=== PATIENT | male | born 1960 | race American Indian/Alaskan Native ===

== ENCOUNTER 2016-07-27 09:13 | Emergency (ER) | payer MEDICAID ==
[2016-07-27 09:31] VITALS: BP 123/82
[2016-07-27] MEDS ORDERED: MORPHINE IM ONE (09:49)
[2016-07-27] MEDS ORDERED: ZOFRAN IM ONE (09:49)
[2016-07-27] MEDS ORDERED: DECADRON IM ONE (09:49)
--- NOTE | 2016-07-27 09:53 | Emergency Department Report ---
ED General Adult HPI - General Chief complaint: Extremity Injury, Lower Stated complaint: LT KNEE PAIN Time Seen by Provider: 07/27/16 09:36 Source: patient Mode of arrival: Ambulatory Limitations: Physical Limitation - History of Present Illness Initial comments: 55-year-old male with history of gout presents to the ED complaining about left knee pain and swelling for 3 weeks. Patient states symptoms are worse today. States that he was seen by his primary care doctor and had uric acid checked which was elevated. States that he was started on Motrin 800 and allopurinol and states no relief with this medication. - Related Data Home Medications Medication Instructions Recorded Confirmed Last Taken Gabapentin 400 mg PO TID 11/16/14 12/03/15 1 Day Ago Ibuprofen [Motrin] 800 mg PO Q8H PRN 11/16/14 12/03/15 07/26/16 Allopurinol [Zyloprim] 100 mg PO QDAY 07/27/16 07/27/16 07/27/16 Fenofibrate [Tricor] 145 mg PO QDAY 07/27/16 07/27/16 07/26/16 Simvastatin [Zocor TAB] 20 mg PO QHS 07/27/16 07/27/16 07/27/16 Previous Rx's Medication Instructions Recorded Last Taken Type Albuterol Sulfate [Ventolin HFA] 2 puff IH Q4H PRN #1 hfa.aer.ad 09/22/15 1 Day Ago Rx Colchicine 0.6 mg PO QDAY #12 capsule 07/27/16 Unknown Rx HYDROcodone/APAP 5-325 [[place] 1 each PO Q6HR PRN #14 tablet 07/27/16 Unknown Rx 5/325] Prednisone [predniSONE 10 mg 10 mg PO .TAPER #1 tab.ds.pk 07/27/16 Unknown Rx (6-Day Pack, 21 Tabs)] Allergies Allergy/AdvReac Type Severity Reaction Status Date / Time No Known Allergies Allergy Verified 12/03/15 07:28 ED Review of Systems ROS: Stated complaint: LT KNEE PAIN Other details as noted in HPI Constitutional: denies: chills, fever Eyes: denies: eye pain, eye discharge, vision change ENT: denies: ear pain, throat pain Respiratory: denies: cough, shortness of breath, wheezing Cardiovascular: denies: chest pain, palpitations Endocrine: no symptoms reported Gastrointestinal: denies: abdominal pain, nausea, diarrhea Genitourinary: denies: urgency, dysuria Musculoskeletal: joint swelling, arthralgia. denies: back pain Skin: denies: rash, lesions Neurological: denies: headache, weakness, paresthesias Psychiatric: denies: anxiety, depression Hematological/Lymphatic: denies: easy bleeding, easy bruising ED Past Medical Hx - Past Medical History Previous Medical History?: Yes Hx CVA: Yes Hx Liver Disease: Yes (HEPATITIS B) Hx Arthritis: Yes Hx Asthma: Yes Additional medical history: hemorrhoids. pancreatitis, gout - Surgical History Past Surgical History?: Yes Additional Surgical History: hemorrhoid surgery. PROSTATE SURGERY - Social History Smoking Status: Current Every Day Smoker Substance Use Type: Alcohol - Medications Home Medications: Home Medications Medication Instructions Recorded Confirmed Last Taken Type Gabapentin 400 mg PO TID 11/16/14 12/03/15 1 Day Ago History Ibuprofen [Motrin] 800 mg PO Q8H PRN 11/16/14 12/03/15 07/26/16 History Albuterol Sulfate [Ventolin HFA] 2 puff IH Q4H PRN #1 hfa.aer.ad 09/22/15 1 Day Ago Rx Allopurinol [Zyloprim] 100 mg PO QDAY 07/27/16 07/27/16 07/27/16 History Colchicine 0.6 mg PO QDAY #12 capsule 07/27/16 Unknown Rx Fenofibrate [Tricor] 145 mg PO QDAY 07/27/16 07/27/16 07/26/16 History HYDROcodone/APAP 5-325 [[place] 1 each PO Q6HR PRN #14 tablet 07/27/16 Unknown Rx 5/325] Prednisone [predniSONE 10 mg 10 mg PO .TAPER #1 tab.ds.pk 07/27/16 Unknown Rx (6-Day Pack, 21 Tabs)] Simvastatin [Zocor TAB] 20 mg PO QHS 07/27/16 07/27/16 07/27/16 History ED Physical Exam - General Limitations: Physical Limitation General appearance: alert, in no apparent distress - Head Head exam: Present: atraumatic, normocephalic - Eye Eye exam: Present: normal appearance - ENT ENT exam: Present: mucous membranes moist - Neck Neck exam: Present: normal inspection - Respiratory Respiratory exam: Present: normal lung sounds bilaterally. Absent: respiratory distress - Cardiovascular Cardiovascular Exam: Present: regular rate, normal rhythm. Absent: systolic murmur, diastolic murmur, rubs, gallop - GI/Abdominal GI/Abdominal exam: Present: soft, normal bowel sounds - Rectal Rectal exam: Present: deferred - Extremities Exam Extremities exam: Present: normal inspection - Expanded Lower Extremity Exam Left Upper Leg exam: Present: normal inspection, full ROM Knee exam: Present: full ROM, tenderness, swelling. Absent: abrasion, laceration, ecchymosis, deformity, crepidus, dislocation, erythema, effusion, pain w/ pronation/supination Lower Leg exam: Present: normal inspection, full ROM Ankle exam: Present: normal inspection, full ROM - Back Exam Back exam: Present: normal inspection - Neurological Exam Neurological exam: Present: alert, oriented X3 - Psychiatric Psychiatric exam: Present: normal affect, normal mood - Skin Skin exam: Present: warm, dry, intact, normal color. Absent: rash ED Course Vital Signs 07/27/16 09:27 Temperature 98.4 F Pulse Rate 98 H Respiratory 20 Rate Blood Pressure 123/82 O2 Sat by Pulse 98 Oximetry ED Medical Decision Making - Medical Decision Making patient resting comfortably. VSS. will give decadron and start colchicine. will stop allopurinol. Critical care attestation.: If time is entered above; I have spent that time in minutes in the direct care of this critically ill patient, excluding procedure time. ED Disposition Clinical Impression: Gout of left knee Disposition: DISCHARGED TO HOME OR SELFCARE Is pt being admited?: No Does the pt Need Aspirin: No Condition: Good Instructions: Acute Gouty Arthritis (ED) Prescriptions: Colchicine 0.6 mg PO QDAY #12 capsule HYDROcodone/APAP 5-325 [[place] 5/325] 1 each PO Q6HR PRN #14 tablet PRN Reason: Pain Prednisone [predniSONE 10 mg (6-Day Pack, 21 Tabs)] 10 mg PO .TAPER #1 tab.ds.pk Referrals: JOHAN CORTEZ MD [Primary Care Provider] - 3-5 Days Time of Disposition: 09:52
== END 2016-07-27 10:27 | disposition home or self-care (01) ==
LOC: ED 09:13
DX: M10.9 Gout, unspecified (principal); J45.909 Unspecified asthma, uncomplicated; F17.200 Nicotine dependence, unspecified, uncomplicated; M19.90 Unspecified osteoarthritis, unspecified site; Z86.73 Personal history of transient ischemic attack (TIA), and cerebral infarction without residual deficits; Z98.890 Other specified postprocedural states; Z86.19 Personal history of other infectious and parasitic diseases; Z79.1 Long term (current) use of non-steroidal anti-inflammatories (NSAID); Z79.899 Other long term (current) drug therapy
CPT/HCPCS: 96372; 99282; J1100; J2270; J2405

== ENCOUNTER 2017-07-18 13:20 | Emergency (ER) | payer MEDICAID ==
[2017-07-18 13:30] VITALS: BP 121/78
[2017-07-18] MEDS ORDERED: PERCOCET 5/325 PO ONE ×2 (14:07→14:10)
--- NOTE | 2017-07-18 14:12 | Emergency Department Report ---
ED Back Pain/Injury HPI - General Chief Complaint: Back Pain/Injury Stated Complaint: BACK/HIP/LEG PAIN Time Seen by Provider: 07/18/17 13:59 Source: patient Limitations: No Limitations - History of Present Illness Initial Comments: 56-year-old male with multiple chronic conditions including arthritis and gout which requires him to be in pain management visits the hospital with continued right hip and leg pain 4 weeks. Symptoms started after jumping and landing hard on his right leg. He has seen his primary care doctor and was prescribed ibuprofen. He is also taking tramadol and Neurontin without relief. Appointment with his pain mask as best as in the next 3 days. Patient states the pain is worsening and he cannot sleep. It is a constant, aching pain with palpation and movement. Pain is at the right lower back, right buttock and radiates down to the right ankle. No urinary incontinence or fever reported. Patient states he's had negative x-rays performed by his PMD. - Related Data Home Medications Medication Instructions Recorded Confirmed Last Taken Gabapentin 400 mg PO TID 11/16/14 09/28/16 1 Day Ago ~11/21/15 Ibuprofen [Motrin 800 MG tab] 800 mg PO Q8H PRN 11/16/14 09/28/16 07/26/16 Allopurinol [Zyloprim] 100 mg PO QDAY 07/27/16 09/28/16 07/27/16 Fenofibrate [Tricor] 145 mg PO QDAY 07/27/16 09/28/16 07/26/16 Simvastatin [Zocor TAB] 20 mg PO QHS 07/27/16 09/28/16 07/27/16 Chloraseptic 2 sprays PO PRN PRN 09/28/16 09/28/16 09/27/16 Robitussin 1 - 2 tbsp PO Q6H PRN 09/28/16 09/28/16 09/27/16 Previous Rx's Medication Instructions Recorded Last Taken Type Albuterol Sulfate [Ventolin HFA] 2 puff IH Q4H PRN #1 hfa.aer.ad 09/22/15 1 Day Ago Rx ~11/21/15 Colchicine 0.6 mg PO QDAY #12 capsule 07/27/16 Unknown Rx Levofloxacin [Levaquin TAB] 500 mg PO QDAY #5 tablet 09/30/16 Unknown Rx Prednisone [predniSONE 10 mg 10 mg PO .TAPER #1 tab.ds.pk 09/30/16 Unknown Rx (6-Day Pack, 21 Tabs)] HYDROcodone/APAP 5-325 [[place] 1 each PO Q6HR PRN #20 tablet 07/18/17 Unknown Rx 5-325 mg TAB] Allergies Allergy/AdvReac Type Severity Reaction Status Date / Time No Known Allergies Allergy Verified 12/03/15 07:28 ED Review of Systems ROS: Stated complaint: BACK/HIP/LEG PAIN Other details as noted in HPI Comment: All other systems reviewed and negative Other: Constitutional: No fevers chills or weight loss Eyes: No eye pain visual changes or discharge ENT: No ear pain or throat pain Neck: Denies pain Respiratory: Denies cough wheezing shortness of breath Cardiovascular: Denies chest pain, palpitations, syncope GI: Denies abdominal pain, nausea, vomiting, diarrhea : Denies dysuria Musculoskeletal: As per HPI Skin: Denies rash, lesions, erythema Neurologic: Denies headache, numbness, weakness Psychiatric: Denies suicidal ideation, hallucinations ED Past Medical Hx - Past Medical History Previous Medical History?: Yes Hx CVA: Yes Hx Congestive Heart Failure: No Hx Diabetes: No Hx Liver Disease: Yes (HEPATITIS B) Hx Arthritis: Yes Hx Asthma: Yes Hx COPD: Yes Hx HIV: No Additional medical history: hemorrhoids. pancreatitis, gout - Surgical History Past Surgical History?: Yes Additional Surgical History: hemorrhoid surgery. PROSTATE SURGERY - Social History Smoking Status: Current Some Day Smoker Substance Use Type: None - Medications Home Medications: Home Medications Medication Instructions Recorded Confirmed Last Taken Type Gabapentin 400 mg PO TID 11/16/14 09/28/16 1 Day Ago History ~11/21/15 Ibuprofen [Motrin 800 MG tab] 800 mg PO Q8H PRN 11/16/14 09/28/16 07/26/16 History Albuterol Sulfate [Ventolin HFA] 2 puff IH Q4H PRN #1 hfa.aer.ad 09/22/15 1 Day Ago Rx ~11/21/15 Allopurinol [Zyloprim] 100 mg PO QDAY 07/27/16 09/28/16 07/27/16 History Colchicine 0.6 mg PO QDAY #12 capsule 07/27/16 09/28/16 Unknown Rx Fenofibrate [Tricor] 145 mg PO QDAY 07/27/16 09/28/16 07/26/16 History Simvastatin [Zocor TAB] 20 mg PO QHS 07/27/16 09/28/16 07/27/16 History Chloraseptic 2 sprays PO PRN PRN 09/28/16 09/28/16 09/27/16 History Robitussin 1 - 2 tbsp PO Q6H PRN 09/28/16 09/28/16 09/27/16 History Levofloxacin [Levaquin TAB] 500 mg PO QDAY #5 tablet 09/30/16 Unknown Rx Prednisone [predniSONE 10 mg 10 mg PO .TAPER #1 tab.ds.pk 09/30/16 Unknown Rx (6-Day Pack, 21 Tabs)] HYDROcodone/APAP 5-325 [[place] 1 each PO Q6HR PRN #20 tablet 07/18/17 Unknown Rx 5-325 mg TAB] ED Physical Exam - General Limitations: No Limitations - Other Other exam information: General: No limitations, patient is alert in no acute distress Head exam: Atraumatic, normocephalic Eyes exam: Normal appearance ENT: Moist mucous membrane, normal oropharynx Neck exam: Normal inspection, full range of motion Respiratory exam: Clear to auscultation bilateral, no wheezes, rales, crackles Cardiovascular: Normal rate and rhythm, normal heart sounds Abdomen: Soft, nondistended, and nontender, with normal bowel sounds, no rebound, or guarding Extremity: Pain to palpation of right buttock and with movement of right leg. Sensation intact. Full range of motion. No deformity or edema. Back: Normal Inspection, full range of motion, no tenderness Neurologic: Alert, oriented x3, cranial nerves intact, no motor or sensory deficit Psychiatric: normal affect, normal mood Skin: Warm, dry, intact ED Course Vital Signs 07/18/17 13:25 Temperature 98.2 F Pulse Rate 70 Respiratory 18 Rate Blood Pressure 121/78 O2 Sat by Pulse 97 Oximetry - Reevaluation(s) Reevaluation #1: 07/18/17 14:11 2 Percocets ordered for pain. Patient took ibuprofen earlier today ED Medical Decision Making - Medical Decision Making Pain is ongoing and chronic. Patient had negative imaging as an outpatient as scheduled to see a pain management doctor. He is requesting stronger medication for pain relief. Provided Percocet in the ED and will go home on [place]. Informed not to take tramadol and [place] together but he can take [place] and ibuprofen together. - Differential Diagnosis sciatica, muscle strain, radiculopathy, herniated disc Critical Care Time: No Critical care attestation.: If time is entered above; I have spent that time in minutes in the direct care of this critically ill patient, excluding procedure time. ED Disposition Clinical Impression: Radicular pain of right lower back Disposition: - TO HOME OR SELFCARE Is pt being admited?: No Does the pt Need Aspirin: No Condition: Stable Instructions: Chronic Back Pain (ED), Sciatica (ED) Additional Instructions: Take either ibuprofen and/or tramadol or your ibuprofen and [place] together for additional pain relief. Continue other medications as prescribed. Follow up with your pain specialist as scheduled. Prescriptions: HYDROcodone/APAP 5-325 [[place] 5-325 mg TAB] 1 each PO Q6HR PRN #20 tablet PRN Reason: Pain Referrals: [facility] [Other] - 3-5 Days Time of Disposition: 14:13
== END 2017-07-18 14:22 | disposition home or self-care (01) ==
LOC: ED 13:20
DX: M54.16 Radiculopathy, lumbar region (principal); Z86.73 Personal history of transient ischemic attack (TIA), and cerebral infarction without residual deficits; M19.90 Unspecified osteoarthritis, unspecified site; J44.9 Chronic obstructive pulmonary disease, unspecified; F17.200 Nicotine dependence, unspecified, uncomplicated
CPT/HCPCS: 99282

== ENCOUNTER 2017-09-08 20:18 | Emergency (ER) | payer MEDICAID ==
[2017-09-08 20:35] VITALS: BP 127/79
== END 2017-09-08 23:45 | disposition left against medical advice (07) ==
LOC: ED 20:18
DX: M79.605 Pain in left leg (principal); Z53.21 Procedure and treatment not carried out due to patient leaving prior to being seen by health care provider

== ENCOUNTER 2018-02-16 09:36 | Day surgery (SDC) | payer MEDICAID ==
[~2018-02-16 09:36] MED LIST: NACL 0.9% 1000 ML 1,000 ML IV SCH
--- NOTE | 2018-02-16 13:16 | Anesthesia Consultation ---
Anesthesia Consult and Med Hx Date of service: 02/16/18 - Airway Anesthetic Teeth Evaluation: Good ROM Head & Neck: Inadequate Mental/Hyoid Distance: Adequate Mallampati Class: Class II Intubation Access Assessment: Probably Good - Pulmonary Exam CTA: Yes - Cardiac Exam Cardiac Exam: RRR - Pre-Operative Health Status ASA Pre-Surgery Classification: ASA3 Proposed Anesthetic Plan: MAC - Pulmonary Hx Smoking: Yes Hx Asthma: Yes COPD: Yes Hx Pneumonia: Yes - Central Nervous System CVA: Yes - Gastrointestinal Hx Gastroesophageal Reflux Disease: Yes - Endocrine Hx Liver Disease: Yes (HEPATITIS B) - Other Systems Hx Cancer: Yes (prostate)
--- NOTE | 2018-02-16 13:17 | Anesthesia Day of Surgery ---
Anesthesia Day of Surgery - Day of Surgery Patient Examined: Yes Patient H&P Reviewed: Yes Patient is NPO: Yes
[2018-02-16] MEDS ORDERED: DIPRIVAN 10 MG/ML IV ONE ×2 (14:05)
--- NOTE | 2018-02-16 14:55 | Operative Report ---
Operative Report Operative Report: Date of procedure: 02/16/2018 Procedure: Colonoscopy Attending physician: Glenn Green MD Magnetic Resonance Imaging Director: Glenn Green MD Indication: Patient is a 57-year-old male who presents for colorectal cancer screening. Colonoscopy serves to evaluate patient so that treatment may be directed based on the findings. Consent: Informed consent was obtained after advising the patient and family regarding nature of this procedure, its indications, potential benefits as well as possible complications including but not limited to bleeding perforation and adverse reaction to medication, infection as well as other cardiopulmonary complications. An informed written and verbal consent was then obtained after due opportunity was provided for questions and answers. Monitoring: Patient was monitored continuously with pulse oximetry and electrocardiographic recordings as well as blood pressure recordings. Vital signs remained stable throughout this procedure with no untoward events. Preoperative assessment: Patient was assessed immediately prior to this procedure for capacity to tolerate monitored anesthesia care and moderate sedation as well as general anesthesia. Patient's ASA classification is 2, Mallampati class is 2, Hyomental distance is 3. Instrument: FaceTagsn videocolonoscope. Medications: Propofol, given intravenously in divided doses. For details please refer to anesthesia records. Description of procedure: Patient was placed in the left lateral decubitus position after achieving sedation, a digital rectal examination was performed following which the colonoscope was introduced into the anal verge and advanced to the cecum which was identified by the cecal valve, the appendiceal orifice, as well as by the cecal strap and direct transillumination. The colonoscope was subsequently withdrawn with careful inspection of all mucosal surfaces. Patient tolerated this procedure well and was subsequently taken to the recovery room. The following findings were noted. Findings: The entirety of the colon was normal except for findings of mild diverticulosis in the sigmoid and descending colon. On retroflex view of the anal verge, patient had internal hemorrhoids. Impression: Mild diverticulosis. Internal hemorrhoids. Plan: High-fiber diet. Repeat colonoscopy in 10 years.
--- NOTE | 2018-02-16 14:56 | Discharge Summary ---
Short Stay Discharge Plan Activity: advance as tolerated Weight Bearing Status: Weight Bear as Tolerated Diet: regular Follow up with: JOHAN CORTEZ MD [Primary Care Provider] - 7 Days
[2018-02-16 15:14] VITALS: BP 114/54
[2018-02-16] MEDS ORDERED: WATER FOR IRRIG STERILE IR ONE (16:07)
[2018-02-16] MEDS ORDERED: WATER FOR IRRIG STERILE ONE (16:08)
== END 2018-02-16 09:37 | disposition home or self-care (01) ==
LOC: GIO 09:36
PROVIDERS: ATTEND Internal Medicine Gastroenterology
DX: K57.30 Diverticulosis of large intestine without perforation or abscess without bleeding (principal); K64.8 Other hemorrhoids; K59.00 Constipation, unspecified; D64.9 Anemia, unspecified; K58.9 Irritable bowel syndrome, unspecified; M19.90 Unspecified osteoarthritis, unspecified site; F17.210 Nicotine dependence, cigarettes, uncomplicated; E78.00 Pure hypercholesterolemia, unspecified; J44.9 Chronic obstructive pulmonary disease, unspecified; K21.9 Gastro-esophageal reflux disease without esophagitis; Z98.890 Other specified postprocedural states; Z79.899 Other long term (current) drug therapy; Z86.73 Personal history of transient ischemic attack (TIA), and cerebral infarction without residual deficits; Z85.46 Personal history of malignant neoplasm of prostate; Z86.19 Personal history of other infectious and parasitic diseases; Z82.5 Family history of asthma and other chronic lower respiratory diseases; Z80.0 Family history of malignant neoplasm of digestive organs
CPT/HCPCS: 45378; J2704; J7030

== ENCOUNTER 2018-06-24 19:44 | Emergency (ER) | payer MEDICAID ==
[2018-06-24 19:54] VITALS: BP 98/72
[2018-06-24] MEDS ORDERED: TORADOL IM ONE (20:37)
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
== END 2018-06-24 22:48 | disposition home or self-care (01) ==
LOC: ED 19:44
DX: S29.011A Strain of muscle and tendon of front wall of thorax, initial encounter (principal); S76.011A Strain of muscle, fascia and tendon of right hip, initial encounter; J44.9 Chronic obstructive pulmonary disease, unspecified; M19.90 Unspecified osteoarthritis, unspecified site; F17.200 Nicotine dependence, unspecified, uncomplicated; Z86.73 Personal history of transient ischemic attack (TIA), and cerebral infarction without residual deficits; Z79.899 Other long term (current) drug therapy
CPT/HCPCS: 71046; 73502; 93005; 93010; 96372; 99283; J1885

== ENCOUNTER 2019-08-23 19:52 | Emergency (ER) | payer MEDICAID ==
--- NOTE | 2019-08-23 20:00 | Emergency Department Report ---
Blank Doc - Documentation Documentation: 58-year-old male that presents with SOB, cough, and tachycardia. This initial assessment/diagnostic orders/clinical plan/treatment(s) is/are subject to change based on patient's health status, clinical progression and re- assessment by fellow clinical providers in the ED. Further treatment and workup at subsequent clinical providers discretion. Patient/guardians urged not to elope from the ED as their condition may be serious if not clinically assessed and managed. Initial orders include: 1- Patient sent to [facility] for further evaluation and treatment 2- CXR
--- NOTE | 2019-08-23 21:02 | XRay Report ---
CHEST 2 VIEWS INDICATION / CLINICAL INFORMATION: cough. COMPARISON: None available FINDINGS: SUPPORT DEVICES: None. HEART / MEDIASTINUM: No significant abnormality. LUNGS / PLEURA: No significant pulmonary or pleural abnormality. No pneumothorax. ADDITIONAL FINDINGS: No significant additional findings. IMPRESSION: No acute finding. Signer Name: Ron Bishop MD Signed: 08/23/2019 8:58 PM Workstation Name: [id number]
[2019-08-23] MEDS ORDERED: LEVALBUTEROL 0.63 MG/3 ML NEBU IH ONE (22:29)
[2019-08-23] MEDS ORDERED: ACETAMINOPHEN 325 MG TAB PO ONE (22:29)
--- NOTE | 2019-08-23 22:29 | Emergency Department Report ---
ED Shortness of Breath HPI - General Chief Complaint: Dyspnea/Respdistress Stated Complaint: ANNAMARIA Time Seen by Provider: 08/23/19 19:59 Source: patient Mode of arrival: Ambulatory Limitations: No Limitations - History of Present Illness Initial Comments: This is a 58-year-old male presented to the emergency room with shortness of breath report that he has a history of asthma. He reports that he takes albuterol and last time he took that was last week. Patient reports occasional cough with nasal congestion. Denies any wheezing. Reports chills. Reports pain to chest with coughing. Denies any nausea vomiting, headache. Denies any diarrhea or constipation. Pain is 4/10 with coughing. Achy. No medication taken. Intermittent. Denies any contact with individuals with similar symptoms. Denies any traveling by airplane or out of the country recently. Patient is not a healthcare worker. Patient reports that he lives alone and his who is on dialysis lives with MD Complaint: shortness of breath, cough Onset/Timin -: days(s) Severity: mild Pain Scale: 4 Quality: aching Consistency: intermittent Worsens With: coughing Known History Of: asthma Context: recent URI Associated Symptoms: chest pain (With coughing), cough, other (Nasal congestion and chills) Treatments Prior to Arrival: none - Related Data Home Oxygen Therapy: No Home Medications Medication Instructions Recorded Confirmed Last Taken Gabapentin 400 mg PO TID 11/16/14 02/16/18 1 Day Ago ~11/21/15 Ibuprofen [Motrin 800 MG tab] 800 mg PO Q8H PRN 11/16/14 02/16/18 07/26/16 Fenofibrate [Tricor] 145 mg PO QDAY 07/27/16 02/16/18 02/11/18 Simvastatin (Nf) [Zocor TAB] 20 mg PO QHS 07/27/16 02/16/18 02/15/18 allopurinoL [Zyloprim] 100 mg PO QDAY 07/27/16 02/16/18 02/15/18 Amitriptyline 25 mg PO DAILY 02/16/18 02/16/18 Unknown Fish Oil 1 tab PO DAILY 02/16/18 02/16/18 02/11/18 Lyrica 250 mg PO DAILY 02/16/18 02/16/18 02/15/18 Vitamin B-12 1 tab PO DAILY 02/16/18 02/16/18 02/11/18 Vitamin E Cap 1 tab PO DAILY 02/16/18 02/16/18 02/11/18 Previous Rx's Medication Instructions Recorded Last Taken Type Albuterol Sulfate [Ventolin HFA] 2 puff IH Q4H PRN #1 hfa.aer.ad 09/22/15 02/13/18 Rx Colchicine 0.6 mg PO QDAY #12 capsule 07/27/16 02/11/18 Rx HYDROcodone/APAP 5-325 [[place] 1 each PO Q6HR PRN #20 tablet 07/18/17 Unknown Rx 5-325 mg TAB] Cyclobenzaprine [Flexeril] 10 mg PO TID PRN #30 tablet 06/24/18 Unknown Rx Menthol/Camphor [[place] 1 applicatio TP QID PRN #1 tube 06/24/18 Unknown Rx Ointment] Naproxen 500 mg PO BID PRN #30 tablet 06/24/18 Unknown Rx Acetaminophen [Acetaminophen TAB] 500 mg PO Q6HR PRN #12 tablet 08/24/19 Unknown Rx Azithromycin [Zithromax Z-ISRAEL] 250 mg PO DAILY 5 Days #1 pkg 08/24/19 Unknown Rx Allergies Allergy/AdvReac Type Severity Reaction Status Date / Time No Known Allergies Allergy Verified 06/24/18 19:50 ED Review of Systems ROS: Stated complaint: ANNAMARIA Other details as noted in HPI Constitutional: chills ENT: congestion. denies: ear pain, throat pain Respiratory: cough, shortness of breath, SOB with exertion, SOB at rest. denies : stridor, wheezing Cardiovascular: chest pain (With coughing). denies: palpitations, edema, syncope Gastrointestinal: denies: abdominal pain, nausea, vomiting, diarrhea, constipation, hematemesis, melena, hematochezia Genitourinary: denies: dysuria, frequency, hematuria Musculoskeletal: denies: back pain, joint swelling, arthralgia, myalgia Skin: denies: rash Neurological: denies: headache, numbness, paresthesias, vertigo ED Past Medical Hx - Past Medical History Previous Medical History?: Yes Hx CVA: Yes Hx Congestive Heart Failure: No Hx Diabetes: No Hx Liver Disease: Yes (HEPATITIS B) Hx Arthritis: Yes Hx Asthma: Yes Hx COPD: Yes Hx HIV: No Additional medical history: hemorrhoids. pancreatitis,. gout. Hyperlipidemia - Surgical History Past Surgical History?: No Additional Surgical History: hemorrhoid surgery. PROSTATE SURGERY - Family History Family history: hypertension - Social History Smoking Status: Never Smoker Substance Use Type: Alcohol - Medications Home Medications: Home Medications Medication Instructions Recorded Confirmed Last Taken Type Gabapentin 400 mg PO TID 11/16/14 02/16/18 1 Day Ago History ~11/21/15 Ibuprofen [Motrin 800 MG tab] 800 mg PO Q8H PRN 11/16/14 02/16/18 07/26/16 History Albuterol Sulfate [Ventolin HFA] 2 puff IH Q4H PRN #1 hfa.aer.ad 09/22/15 02/16/18 02/13/18 Rx Colchicine 0.6 mg PO QDAY #12 capsule 07/27/16 02/16/18 02/11/18 Rx Fenofibrate [Tricor] 145 mg PO QDAY 07/27/16 02/16/18 02/11/18 History Simvastatin (Nf) [Zocor TAB] 20 mg PO QHS 07/27/16 02/16/18 02/15/18 History allopurinoL [Zyloprim] 100 mg PO QDAY 07/27/16 02/16/18 02/15/18 History HYDROcodone/APAP 5-325 [[place] 1 each PO Q6HR PRN #20 tablet 07/18/17 02/16/18 Unknown Rx 5-325 mg TAB] Amitriptyline 25 mg PO DAILY 02/16/18 02/16/18 Unknown History Fish Oil 1 tab PO DAILY 02/16/18 02/16/18 02/11/18 History Lyrica 250 mg PO DAILY 02/16/18 02/16/18 02/15/18 History Vitamin B-12 1 tab PO DAILY 02/16/18 02/16/18 02/11/18 History Vitamin E Cap 1 tab PO DAILY 02/16/18 02/16/18 02/11/18 History Cyclobenzaprine [Flexeril] 10 mg PO TID PRN #30 tablet 06/24/18 Unknown Rx Menthol/Camphor [[place] 1 applicatio TP QID PRN #1 tube 06/24/18 Unknown Rx Ointment] Naproxen 500 mg PO BID PRN #30 tablet 06/24/18 Unknown Rx Acetaminophen [Acetaminophen TAB] 500 mg PO Q6HR PRN #12 tablet 08/24/19 Unknown Rx Azithromycin [Zithromax Z-ISRAEL] 250 mg PO DAILY 5 Days #1 pkg 08/24/19 Unknown Rx ED Physical Exam - General Limitations: No Limitations General appearance: alert, in no apparent distress - Head Head exam: Present: atraumatic, normocephalic - Eye Eye exam: Present: normal appearance, PERRL, EOMI Pupils: Present: normal accommodation - ENT ENT exam: Present: normal orophraynx, mucous membranes moist, normal external ear exam, other (Bilateral nasal turbinates pale, congested with clear drainage). Absent: normal exam, TM's normal bilaterally (Bilateral middle ear effusion) - Neck Neck exam: Present: normal inspection, full ROM. Absent: tenderness, lymphadenopathy - Respiratory Respiratory exam: Present: normal lung sounds bilaterally, decreased breath sounds (Mild). Absent: respiratory distress, wheezes, rales, rhonchi, stridor, chest wall tenderness, accessory muscle use, prolonged expiratory - Cardiovascular Cardiovascular Exam: Present: regular rate, normal rhythm, normal heart sounds - GI/Abdominal GI/Abdominal exam: Present: soft, normal bowel sounds. Absent: distended, tenderness, guarding, rebound, rigid - Extremities Exam Extremities exam: Present: normal inspection, full ROM, normal capillary refill, other (No cce. + 2 pulses in all extremities, no neurovascular compromise). Absent: tenderness, pedal edema, joint swelling - Back Exam Back exam: Present: normal inspection, full ROM, other (Ambulates without any difficulties). Absent: tenderness, CVA tenderness (L) - Neurological Exam Neurological exam: Present: alert, oriented X3, normal gait - Psychiatric Psychiatric exam: Present: normal affect, normal mood - Skin Skin exam: Present: warm, dry, intact, normal color. Absent: rash ED Course Vital Signs 08/23/19 08/23/19 08/24/19 19:58 23:44 01:29 Temperature 99.6 F 99.2 F Pulse Rate 98 H 92 H Pulse Rate [ 84 Posterior Bilateral Throughout] Respiratory 18 20 Rate Respiratory 18 Rate [Posterior Bilateral Throughout] Blood Pressure 103/68 Blood Pressure 113/69 [Right] O2 Sat by Pulse 97 98 Oximetry - Reevaluation(s) Reevaluation #1: 08/23/19 23:50 Patient received Xopenex nebulizer 1.25 mg and still with some decreased air entry and complain of shortness of breath on exertion. Additional DuoNeb ordered. Chest x-ray is normal. CBC with mild hemoconcentration and chemistry stable except for potassium 3.5 which is slightly decreased. Troponin is negative. Still awaiting EKG and influenza test. Patient is nontoxic. I spoke with Dr. mccracken ED was the ED attending regarding patient presentation and treatment plan and is in agreement. Reevaluation #2: 08/24/19 01:43 Patient reports that when he coughs he has pain to the upper abdomen and bilateral chest. Placed on droplet precaution for suspect COVID-19. Lung sounds are clear and improved air entry. Oxygenation is at 97% on room air status post nebulizer treatment. Tylenol with codeine 10 cc ordered for cough and will help pain with coughing Reevaluation #3: 08/24/19 03:08 Patient educated on quarantine and COVID-19 suspicion. PUI formed completed and sent. Scanned in chart by registration. Patient seen is feeling a lot better after Tylenol with codeine elixir. Denies any pain at present. He said his cough is better. Vital signs are stable he is afebrile and patient to be discharged home on quarantine and followed by health department ED Medical Decision Making - Lab Data Result diagrams: 08/23/19 22:39 08/23/19 22:39 Lab Results 08/23/19 08/23/19 08/23/19 Range/Units 22:39 22:39 22:39 WBC 5.7 (4.5-11.0) K/mm3 RBC 4.71 (3.65-5.03) M/mm3 Hgb 15.8 H (11.8-15.2) gm/dl Hct 46.2 H (35.5-45.6) % MCV 98 H (84-94) fl MCH 33 H (28-32) pg MCHC 34 (32-34) % RDW 14.5 (13.2-15.2) % Plt Count 211 (140-440) K/mm3 Baso % (Auto) Sprinkling System Irrigator Add Manual Diff Complete Total Counted 100 Seg Neuts % (Manual) 63.0 (40.0-70.0) % Band Neutrophils % 2.0 % Lymphocytes % (Manual) 28.0 (13.4-35.0) % Reactive Lymphs % (Man) 0 % Monocytes % (Manual) 7.0 (0.0-7.3) % Eosinophils % (Manual) 0 (0.0-4.3) % Basophils % (Manual) 0 (0.0-1.8) % Metamyelocytes % 0 % Myelocytes % 0 % Promyelocytes % 0 % Blast Cells % 0 % Nucleated RBC % Not Reportable Seg Neutrophils # Man 3.6 (1.8-7.7) K/mm3 Band Neutrophils # 0.1 K/mm3 Lymphocytes # (Manual) 1.6 (1.2-5.4) K/mm3 Abs React Lymphs (Man) 0.0 K/mm3 Monocytes # (Manual) 0.4 (0.0-0.8) K/mm3 Eosinophils # (Manual) 0.0 (0.0-0.4) K/mm3 Basophils # (Manual) 0.0 (0.0-0.1) K/mm3 Metamyelocytes # 0.0 K/mm3 Myelocytes # 0.0 K/mm3 Promyelocytes # 0.0 K/mm3 Blast Cells # 0.0 K/mm3 WBC Morphology Not Reportable Hypersegmented Neuts Not Reportable Hyposegmented Neuts Not Reportable Hypogranular Neuts Not Reportable Smudge Cells Not Reportable Toxic Granulation Not Reportable Toxic Vacuolation Not Reportable Dohle Bodies Not Reportable Pelger-Huet Anomaly Not Reportable Verena Rods Not Reportable Platelet Estimate Consistent w auto Clumped Platelets Not Reportable Plt Clumps, EDTA Not Reportable Large Platelets Not Reportable Giant Platelets Not Reportable Platelet Satelliting Not Reportable Plt Morphology Comment Not Reportable RBC Morphology Normal Dimorphic RBCs Not Reportable Polychromasia Not Reportable Hypochromasia Not Reportable Poikilocytosis Not Reportable Anisocytosis Not Reportable Microcytosis Not Reportable Macrocytosis Not Reportable Spherocytes Not Reportable Pappenheimer Bodies Not Reportable Sickle Cells Not Reportable Target Cells Not Reportable Tear Drop Cells Not Reportable Ovalocytes Not Reportable Helmet Cells Not Reportable Ervin-[place] Bodies Not Reportable [place] Rings Not Reportable [place] Cells Not Reportable Bite Cells Not Reportable Crenated Cell Not Reportable Elliptocytes Not Reportable Acanthocytes (Spur) Not Reportable Rouleaux Not Reportable Hemoglobin C Crystals Not Reportable Schistocytes Not Reportable Malaria parasites Not Reportable Micha Bodies Not Reportable Hem Pathologist Commnt No Sodium 137 (137-145) mmol/L Potassium 3.5 L (3.6-5.0) mmol/L Chloride 101.1 (98-107) mmol/L Carbon Dioxide 22 (22-30) mmol/L Anion Gap 17 mmol/L BUN 9 (9-20) mg/dL Creatinine 0.9 (0.8-1.5) mg/dL Estimated GFR > 60 ml/min BUN/Creatinine Ratio 10 % Glucose 111 H (75-100) mg/dL Calcium 9.4 (8.4-10.2) mg/dL Total Bilirubin 0.30 (0.1-1.2) mg/dL AST 58 H (5-40) units/L ALT 30 (7-56) units/L Alkaline Phosphatase 55 (35-129) units/L Troponin T < 0.010 (0.00-0.029) ng/mL Total Protein 7.4 (6.3-8.2) g/dL Albumin 4.0 (3.9-5) g/dL Albumin/Globulin Ratio 1.2 % Influenza A (Rapid) (Negative) Influenza B (Rapid) (Negative) 08/23/19 Range/Units Unknown WBC (4.5-11.0) K/mm3 RBC (3.65-5.03) M/mm3 Hgb (11.8-15.2) gm/dl Hct (35.5-45.6) % MCV (84-94) fl MCH (28-32) pg MCHC (32-34) % RDW (13.2-15.2) % Plt Count (140-440) K/mm3 Baso % (Auto) Add Manual Diff Total Counted Seg Neuts % (Manual) (40.0-70.0) % Band Neutrophils % % Lymphocytes % (Manual) (13.4-35.0) % Reactive Lymphs % (Man) % Monocytes % (Manual) (0.0-7.3) % Eosinophils % (Manual) (0.0-4.3) % Basophils % (Manual) (0.0-1.8) % Metamyelocytes % % Myelocytes % % Promyelocytes % % Blast Cells % % Nucleated RBC % Seg Neutrophils # Man (1.8-7.7) K/mm3 Band Neutrophils # K/mm3 Lymphocytes # (Manual) (1.2-5.4) K/mm3 Abs React Lymphs (Man) K/mm3 Monocytes # (Manual) (0.0-0.8) K/mm3 Eosinophils # (Manual) (0.0-0.4) K/mm3 Basophils # (Manual) (0.0-0.1) K/mm3 Metamyelocytes # K/mm3 Myelocytes # K/mm3 Promyelocytes # K/mm3 Blast Cells # K/mm3 WBC Morphology Hypersegmented Neuts Hyposegmented Neuts Hypogranular Neuts Smudge Cells Toxic Granulation Toxic Vacuolation Dohle Bodies Pelger-Huet Anomaly Verena Rods Platelet Estimate Clumped Platelets Plt Clumps, EDTA Large Platelets Giant Platelets Platelet Satelliting Plt Morphology Comment RBC Morphology Dimorphic RBCs Polychromasia Hypochromasia Poikilocytosis Anisocytosis Microcytosis Macrocytosis Spherocytes Pappenheimer Bodies Sickle Cells Target Cells Tear Drop Cells Ovalocytes Helmet Cells Ervin-Bonneau Bodies [place] Rings Meek Cells Bite Cells Crenated Cell Elliptocytes Acanthocytes (Spur) Rouleaux Hemoglobin C Crystals Schistocytes Malaria parasites Micha Bodies Hem Pathologist Commnt Sodium (137-145) mmol/L Potassium (3.6-5.0) mmol/L Chloride (98-107) mmol/L Carbon Dioxide (22-30) mmol/L Anion Gap mmol/L BUN (9-20) mg/dL Creatinine (0.8-1.5) mg/dL Estimated GFR ml/min BUN/Creatinine Ratio % Glucose (75-100) mg/dL Calcium (8.4-10.2) mg/dL Total Bilirubin (0.1-1.2) mg/dL AST (5-40) units/L ALT (7-56) units/L Alkaline Phosphatase (35-129) units/L Troponin T (0.00-0.029) ng/mL Total Protein (6.3-8.2) g/dL Albumin (3.9-5) g/dL Albumin/Globulin Ratio % Influenza A (Rapid) Negative (Negative) Influenza B (Rapid) Negative (Negative) - EKG Data -: EKG Interpreted by Ks EKG shows normal: sinus rhythm (100 bpm.) - Radiology Data Radiology results: report reviewed Chest x-ray two-view dictated by radiologist and report reviewed by myself. Please see details below Referring Physician:KANNAN UGARTEPatient Name:MEHDI ZABALA TOLESPatient ID:[id number] of :[id number]:MaleAccession:[id number] Date:[id number] Status:Finalized Findings [facility] [address] [address] XRay Report Signed Patient: MEHDI LAN MR#: [id number] : 1960 Acct:[id number] Age/Sex: 58 / M ADM Date: 08/23/19 Loc: ED Attending Dr: Ordering Physician: KANNAN UGARTE NP Date of Service: 08/23/19 Procedure(s): XR chest routine 2V Accession Number(s): [id number] cc: KANNAN UGARTE NP Fluoro Time In Minutes: CHEST 2 VIEWS INDICATION / CLINICAL INFORMATION: cough. COMPARISON: None available FINDINGS: SUPPORT DEVICES: None. HEART / MEDIASTINUM: No significant abnormality. LUNGS / PLEURA: No significant pulmonary or pleural abnormality. No pneumothorax. ADDITIONAL FINDINGS: No significant additional findings. IMPRESSION: No acute finding. Signer Name: Ron Bishop MD Signed: 08/23/2019 8:58 PM Workstation Name: [id number] Transcribed By: DMB Dictated By: Ron Bishop MD Electronically Authenticated By: Ron Bishop MD Signed Date/Time: 08/23/192057 DD/ 54 TD/TT: - Medical Decision Making This is a 58-year-old male here report that he has shortness of breath nasal congestion and occasional cough over the last 3 days. Patient is concerned for pneumonia. Chest x-ray dictated by radiologist and report reviewed by myself and no acute findings. Laboratory results reviewed and stable. Influenza a and B-. Patient given nebulizer treatment in emergency room and also given Tylenol with codeine elixir for painful cough. Upon reevaluation, he said he feels much better cough has resolved and no pain at present. I discussed with patient his diagnosis, laboratory results and treatment plan. I informed him that he is suspected for COVID 19 and will need to be quarantined for 14 days and that the health department will call him within this timeframe and they will determine whether he needs to be tested and also determine when his quarantine is ended. Patient information sent to the health department and scanned to his chart. Education given along with COVID form from [facility] and [facility]. He voiced understanding of all discharge instructions and discharged home in stable condition. Patient brother is taking him home who is wearing a mask and patient has a mask. He is stable, vital signs stable and in no acute distress. Patient is feeling better discharged home with prescription for Z-[place] and Tylenol and to continue albuterol inhaler and if his condition worsens to return to the emergency room - Differential Diagnosis Suspect COVID-19, PNA, acute asthma exac, URI with cough and congestion Critical care attestation.: If time is entered above; I have spent that time in minutes in the direct care of this critically ill patient, excluding procedure time. ED Disposition Clinical Impression: URI with cough and congestion, Fever in adult Disposition: DC-01 TO HOME OR SELFCARE Is pt being admited?: No Does the pt Need Aspirin: No Condition: Stable Instructions: COVID-19, Viral Syndrome (ED) Additional Instructions: Please follow discharge instruction on COVID-19 per CDC guideline. These refer to form given. Take medication as prescribed You will need to be quarantined at your home until you are contacted by the health department with further instructions. If your condition worsens, please return to the emergency room See [facility] form for infected port and information regarding the [id number] You are suspected to have coronavirus (COVID-19) in the health department will do tests as necessary. Continue to take your inhaler treatment at home for shortness of breath and cough since this give you some relief. Take azithromycin this is an antibiotic. Prescriptions: Acetaminophen [Acetaminophen TAB] 500 mg PO Q6HR PRN #12 tablet PRN Reason: pain and/or fever Azithromycin [Zithromax Z-ISRAEL] 250 mg PO DAILY 5 Days #1 pkg Referrals: PRIMARY CAREMD [Primary Care Provider] - 08/24/19 Forms: Accompanied Note, Work/School Release Form(ED)
[2019-08-23 22:57] LABS: Hematocrit 46.2 % (35.5-45.6); Hemoglobin 15.8 gm/dl (11.8-15.2); Mean Corpuscular HGB Conc 34 % (32-34); Mean Corpuscular Volume 98 fl (84-94); Platelet Count 211 K/mm3 (140-440); Red Blood Count 4.71 M/mm3 (3.65-5.03); Red Cell Distribution Width 14.5 % (13.2-15.2)
[2019-08-23 23:16] LABS: Alanine Aminotransferase 30 units/L (7-56); BUN/Creatinine Ratio 10; Blood Urea Nitrogen 9 mg/dL (9-20); Calcium 9.4 mg/dL (8.4-10.2); Hemolysis Index 8
[2019-08-23] MEDS ORDERED: IPRATROPIUM/ALBUTEROL SULFATE 3 ML AMPUL.NEB IH ONE (23:21)
[2019-08-24 01:05] LABS: Band Neutrophils # (Manual) 0.1 K/mm3; Basophils % (Manual) 0 % (0.0-1.8); Eosinophils % (Manual) 0 % (0.0-4.3); Platelet Estimate Consistent w Auto; RBC Morphology Normal; Total Cells Counted 100
[2019-08-24] MEDS ORDERED: ACETAMINOPEN W/CODEINE 120-12MG ORAL LIQD 5 ML PO ONE (01:44)
[2019-08-24 04:25] VITALS: BP 119/70
== END 2019-08-24 03:55 | disposition home or self-care (01) ==
LOC: ED 19:52
DX: J06.9 Acute upper respiratory infection, unspecified (principal); J45.909 Unspecified asthma, uncomplicated; E78.5 Hyperlipidemia, unspecified; M19.90 Unspecified osteoarthritis, unspecified site; Z86.73 Personal history of transient ischemic attack (TIA), and cerebral infarction without residual deficits
CPT/HCPCS: 36415; 71046; 80053; 84484; 85007; 85025; 87400; 93005; 93010; 94640; 94644

== ENCOUNTER 2020-06-20 11:29 | Emergency (ER) | payer MEDICAID ==
--- NOTE | 2020-06-20 11:35 | Event Note ---
ED Screening Note Date of service: 06/20/20 Time: 11:32 ED Screening Note: 59-year-old -Hungarian male presents to the emergency room for acute chest pain to the right side that started 3 hours prior to arrival. Patient states he has a history of gout and arthritis. Patient states this came on while he was at work today. He admits to some difficulty with breathing. This initial assessment/diagnostic orders/clinical plan/treatment(s) is/are subject to change based on patients health status, clinical progression and re- assessment by fellow clinical providers in the ED. Further treatment and workup at subsequent clinical providers discretion. Patient/guardian urged not to elope from the ED as their condition may be serious if not clinically assessed and managed. Initial orders include:
--- NOTE | 2020-06-20 12:07 | XRay Report ---
CHEST 2 VIEWS INDICATION / CLINICAL INFORMATION: Chest pain difficulty breathing. COMPARISON: 08/23/2019 FINDINGS: SUPPORT DEVICES: None. HEART / MEDIASTINUM: No significant abnormality. LUNGS / PLEURA: No significant pulmonary or pleural abnormality. No pneumothorax. ADDITIONAL FINDINGS: No significant additional findings. IMPRESSION: No significant abnormality or interval change from 08/23/2019 Signer Name: Rizwan Nieto MD FACR Signed: 06/20/2020 12:02 PM Workstation Name: [id number]
[2020-06-20] MEDS ORDERED: FAMOTIDINE 20 MG/2 ML INJ IV ONE (12:09)
[2020-06-20] MEDS ORDERED: ASPIRIN 325 MG TAB PO ONE (12:09)
--- NOTE | 2020-06-20 12:12 | Emergency Department Report ---
ED Chest Pain HPI - General Chief Complaint: Chest Pain Stated Complaint: CHEST PAIN Time Seen by Provider: 06/20/20 12:05 Source: patient Mode of arrival: Ambulatory Limitations: No Limitations - History of Present Illness Initial Comments: Patient is a 59-year-old F [place] male who is presenting with chest pain which started approximately 2 to 3 hours ago. Patient states his is ill with end-stage renal disease he was up with her most of the night. He got home very late since he was in the emergency department took a shower and then went to work. When he got to work after getting settled he started feeling some chest tightness and pain. Pain is estimated at a 6 out of 10 in severity. Pain is located in the center chest and the lower sternum and epigastric area. States that the pain also is present in the right lower chest as well feels like something is stuck underneath his right rib cage. States pain is worse with deep breathing and he has had some shortness of breath this morning. He denies cough cold congestion fevers or chills. There is no exertional component to the pain. Patient states he does get occasional acid reflux but states this is worse. Patient is asthmatic but is not noted any wheezing. - Related Data Home Medications Medication Instructions Recorded Confirmed Last Taken Gabapentin 400 mg PO TID 11/16/14 02/16/18 1 Day Ago ~11/21/15 Ibuprofen [Motrin 800 MG tab] 800 mg PO Q8H PRN 11/16/14 02/16/18 07/26/16 Fenofibrate [Tricor] 145 mg PO QDAY 07/27/16 02/16/18 02/11/18 Simvastatin (Nf) [Zocor TAB] 20 mg PO QHS 07/27/16 02/16/18 02/15/18 allopurinoL [Zyloprim] 100 mg PO QDAY 07/27/16 02/16/18 02/15/18 Amitriptyline 25 mg PO DAILY 02/16/18 02/16/18 Unknown Fish Oil 1 tab PO DAILY 02/16/18 02/16/18 02/11/18 Lyrica 250 mg PO DAILY 02/16/18 02/16/18 02/15/18 Vitamin B-12 1 tab PO DAILY 02/16/18 02/16/18 02/11/18 Vitamin E Cap 1 tab PO DAILY 02/16/18 02/16/18 02/11/18 Previous Rx's Medication Instructions Recorded Last Taken Type Albuterol Sulfate [Ventolin HFA] 2 puff IH Q4H PRN #1 hfa.aer.ad 09/22/15 02/13/18 Rx Colchicine 0.6 mg PO QDAY #12 capsule 07/27/16 02/11/18 Rx HYDROcodone/APAP 5-325 [[place] 1 each PO Q6HR PRN #20 tablet 07/18/17 Unknown Rx 5-325 mg TAB] Cyclobenzaprine [Flexeril] 10 mg PO TID PRN #30 tablet 06/24/18 Unknown Rx Menthol/Camphor [[place] 1 applicatio TP QID PRN #1 tube 06/24/18 Unknown Rx Ointment] Naproxen 500 mg PO BID PRN #30 tablet 06/24/18 Unknown Rx Acetaminophen [Acetaminophen TAB] 500 mg PO Q6HR PRN #12 tablet 08/24/19 Unknown Rx Azithromycin [Zithromax Z-ISSAC] 250 mg PO DAILY 5 Days #1 pkg 08/24/19 Unknown Rx Pantoprazole [Protonix] 40 mg PO QDAY #30 tablet 06/20/20 Unknown Rx traMADoL [Ultram] 50 mg PO Q6HR PRN #12 tablet 06/20/20 Unknown Rx Allergies Allergy/AdvReac Type Severity Reaction Status Date / Time No Known Allergies Allergy Verified 06/24/18 19:50 Heart Score - HEART Score History: Slightly suspicious EKG: Normal Age: 45-65 Risk factors: 1-2 risk factors Troponin: < normal limit HEART Score: 2 ED Review of Systems ROS: Stated complaint: CHEST PAIN Other details as noted in HPI Comment: All other systems reviewed and negative ED Past Medical Hx - Past Medical History Previous Medical History?: Yes Hx CVA: Yes Hx Congestive Heart Failure: No Hx Diabetes: No Hx Liver Disease: Yes (HEPATITIS B) Hx Arthritis: Yes Hx Asthma: Yes Hx COPD: Yes Hx HIV: No Additional medical history: hemorrhoids. pancreatitis,. gout. Hyperlipidemia - Surgical History Past Surgical History?: Yes Additional Surgical History: hemorrhoid surgery. PROSTATE SURGERY - Social History Smoking Status: Never Smoker Substance Use Type: None - Medications Home Medications: Home Medications Medication Instructions Recorded Confirmed Last Taken Type Gabapentin 400 mg PO TID 11/16/14 02/16/18 1 Day Ago History ~11/21/15 Ibuprofen [Motrin 800 MG tab] 800 mg PO Q8H PRN 11/16/14 02/16/18 07/26/16 History Albuterol Sulfate [Ventolin HFA] 2 puff IH Q4H PRN #1 hfa.aer.ad 09/22/15 02/16/18 02/13/18 Rx Colchicine 0.6 mg PO QDAY #12 capsule 07/27/16 02/16/18 02/11/18 Rx Fenofibrate [Tricor] 145 mg PO QDAY 07/27/16 02/16/18 02/11/18 History Simvastatin (Nf) [Zocor TAB] 20 mg PO QHS 07/27/16 02/16/18 02/15/18 History allopurinoL [Zyloprim] 100 mg PO QDAY 07/27/16 02/16/18 02/15/18 History HYDROcodone/APAP 5-325 [[place] 1 each PO Q6HR PRN #20 tablet 07/18/17 02/16/18 Unknown Rx 5-325 mg TAB] Amitriptyline 25 mg PO DAILY 02/16/18 02/16/18 Unknown History Fish Oil 1 tab PO DAILY 02/16/18 02/16/18 02/11/18 History Lyrica 250 mg PO DAILY 02/16/18 02/16/18 02/15/18 History Vitamin B-12 1 tab PO DAILY 02/16/18 02/16/18 02/11/18 History Vitamin E Cap 1 tab PO DAILY 02/16/18 02/16/18 02/11/18 History Cyclobenzaprine [Flexeril] 10 mg PO TID PRN #30 tablet 06/24/18 Unknown Rx Menthol/Camphor [[place] 1 applicatio TP QID PRN #1 tube 06/24/18 Unknown Rx Ointment] Naproxen 500 mg PO BID PRN #30 tablet 06/24/18 Unknown Rx Acetaminophen [Acetaminophen TAB] 500 mg PO Q6HR PRN #12 tablet 08/24/19 Unknown Rx Azithromycin [Zithromax Z-ISSAC] 250 mg PO DAILY 5 Days #1 pkg 08/24/19 Unknown Rx Pantoprazole [Protonix] 40 mg PO QDAY #30 tablet 06/20/20 Unknown Rx traMADoL [Ultram] 50 mg PO Q6HR PRN #12 tablet 06/20/20 Unknown Rx ED Physical Exam - General Limitations: No Limitations General appearance: alert, in no apparent distress - Head Head exam: Present: atraumatic, normocephalic - Eye Eye exam: Present: normal appearance, PERRL, EOMI - ENT ENT exam: Present: mucous membranes moist - Neck Neck exam: Present: normal inspection - Respiratory Respiratory exam: Present: normal lung sounds bilaterally, chest wall tenderness (lower sternum and epigastric area). Absent: respiratory distress, wheezes, rales, rhonchi - Cardiovascular Cardiovascular Exam: Present: regular rate, normal rhythm, normal heart sounds. Absent: systolic murmur, diastolic murmur, rubs, gallop - GI/Abdominal GI/Abdominal exam: Present: soft, tenderness (epigastric), normal bowel sounds. Absent: distended, guarding, rebound, rigid - Rectal Rectal exam: Present: deferred - Extremities Exam Extremities exam: Present: normal inspection - Back Exam Back exam: Present: normal inspection - Neurological Exam Neurological exam: Present: alert, oriented X3 - Psychiatric Psychiatric exam: Present: normal affect, normal mood - Skin Skin exam: Present: warm, dry, intact, normal color. Absent: rash ED Course Vital Signs 06/20/20 06/20/20 11:29 12:15 Temperature 98.7 F Pulse Rate 74 74 Respiratory 18 12 Rate Blood Pressure 128/75 128/77 O2 Sat by Pulse 99 98 Oximetry ED Medical Decision Making - Lab Data Result diagrams: 06/20/20 11:59 06/20/20 11:59 Lab Results 06/20/20 06/20/20 06/20/20 Range/Units 11:59 11:59 11:59 WBC 6.3 (4.5-11.0) K/mm3 RBC 4.68 (3.65-5.03) M/mm3 Hgb 16.2 H (11.8-15.2) gm/dl Hct 47.1 H (35.5-45.6) % MCV 101 H (84-94) fl MCH 35 H (28-32) pg MCHC 34 (32-34) % RDW 13.5 (13.2-15.2) % Plt Count 273 (140-440) K/mm3 Lymph % (Auto) 51.9 H (13.4-35.0) % Garden % (Auto) 8.4 H (0.0-7.3) % Eos % (Auto) 1.1 (0.0-4.3) % Baso % (Auto) 2.3 H (0.0-1.8) % Lymph # (Auto) 3.3 (1.2-5.4) K/mm3 Garden # (Auto) 0.5 (0.0-0.8) K/mm3 Eos # (Auto) 0.1 (0.0-0.4) K/mm3 Baso # (Auto) 0.1 (0.0-0.1) K/mm3 Seg Neutrophils % 36.3 L (40.0-70.0) % Seg Neutrophils # 2.3 (1.8-7.7) K/mm3 PT 13.5 (12.2-14.9) Sec. INR 1.04 (0.87-1.13) APTT 37.8 H (24.2-36.6) Sec. D-Dimer 224.05 (0-234) ng/mlDDU Sodium 140 (137-145) mmol/L Potassium 3.7 (3.6-5.0) mmol/L Chloride 107.4 H (98-107) mmol/L Carbon Dioxide 21 L (22-30) mmol/L Anion Gap 15 mmol/L BUN 10 (9-20) mg/dL Creatinine 0.8 (0.8-1.3) mg/dL Estimated GFR > 60 ml/min BUN/Creatinine Ratio 13 % Glucose 113 H (75-100) mg/dL Calcium 10.1 (8.4-10.2) mg/dL Total Bilirubin 0.50 (0.1-1.2) mg/dL AST 22 (5-40) units/L ALT 13 (7-56) units/L Alkaline Phosphatase 70 (35-129) units/L Troponin T (0.00-0.029) ng/mL Total Protein 7.4 (6.3-8.2) g/dL Albumin 4.5 (3.9-5) g/dL Albumin/Globulin Ratio 1.6 % Lipase (13-60) units/L 06/20/20 06/20/20 Range/Units 11:59 13:43 WBC (4.5-11.0) K/mm3 RBC (3.65-5.03) M/mm3 Hgb (11.8-15.2) gm/dl Hct (35.5-45.6) % MCV (84-94) fl MCH (28-32) pg MCHC (32-34) % RDW (13.2-15.2) % Plt Count (140-440) K/mm3 Lymph % (Auto) (13.4-35.0) % Garden % (Auto) (0.0-7.3) % Eos % (Auto) (0.0-4.3) % Baso % (Auto) (0.0-1.8) % Lymph # (Auto) (1.2-5.4) K/mm3 Garden # (Auto) (0.0-0.8) K/mm3 Eos # (Auto) (0.0-0.4) K/mm3 Baso # (Auto) (0.0-0.1) K/mm3 Seg Neutrophils % (40.0-70.0) % Seg Neutrophils # (1.8-7.7) K/mm3 PT (12.2-14.9) Sec. INR (0.87-1.13) APTT (24.2-36.6) Sec. D-Dimer (0-234) ng/mlDDU Sodium (137-145) mmol/L Potassium (3.6-5.0) mmol/L Chloride (98-107) mmol/L Carbon Dioxide (22-30) mmol/L Anion Gap mmol/L BUN (9-20) mg/dL Creatinine (0.8-1.3) mg/dL Estimated GFR ml/min BUN/Creatinine Ratio % Glucose (75-100) mg/dL Calcium (8.4-10.2) mg/dL Total Bilirubin (0.1-1.2) mg/dL AST (5-40) units/L ALT (7-56) units/L Alkaline Phosphatase (35-129) units/L Troponin T < 0.010 < 0.010 (0.00-0.029) ng/mL Total Protein (6.3-8.2) g/dL Albumin (3.9-5) g/dL Albumin/Globulin Ratio % Lipase 54 (13-60) units/L - EKG Data -: EKG Interpreted by Me EKG shows normal: sinus rhythm, axis, intervals, QRS complexes, ST-T waves Rate: normal - EKG Data Interpretation: normal EKG - Radiology Data Ordering Physician: ALEIDA MORGAN Date of Service: 06/20/20 Procedure(s): XR chest routine 2V Accession Number(s): [id number] cc: ALEIDA MORGAN Fluoro Time In Minutes: CHEST 2 VIEWS INDICATION / CLINICAL INFORMATION: Chest pain difficulty breathing. COMPARISON: 08/23/2019 FINDINGS: SUPPORT DEVICES: None. HEART / MEDIASTINUM: No significant abnormality. LUNGS / PLEURA: No significant pulmonary or pleural abnormality. No pneumothorax. ADDITIONAL FINDINGS: No significant additional findings. IMPRESSION: No significant abnormality or interval change from 08/23/2019 Signer Name: Rizwan Nieto MD FACR Signed: 06/20/2020 12:02 PM Workstation Name: [employer] - Medical Decision Making Patient has had 2 - troponins. Chest x-ray within normal limits. Patient started feeling better after the Pepcid. Patient to be discharged home with follow-up with his primary care physician. Medications given for symptomatic relief. Critical care attestation.: If time is entered above; I have spent that time in minutes in the direct care of this critically ill patient, excluding procedure time. ED Disposition Clinical Impression: Atypical chest pain, GERD (gastroesophageal reflux disease) Disposition: - TO HOME OR SELFCARE Is pt being admited?: No Does the pt Need Aspirin: No Condition: Stable Instructions: Chest Pain (ED), Food Choices for Gastroesophageal Reflux Disease, Adult, Nonspecific Chest Pain, Adult, Heartburn Referrals: PRIMARY CARE, [Primary Care Provider] - 3-5 Days Time of Disposition: 14:49
[2020-06-20 12:51] LABS: Basophils # (Auto) 0.1 K/mm3 (0.0-0.1); Basophils % (Auto) 2.3 % (0.0-1.8); Eosinophils # (Auto) 0.1 K/mm3 (0.0-0.4); Eosinophils % (Auto) 1.1 % (0.0-4.3); Hematocrit 47.1 % (35.5-45.6); Hemoglobin 16.2 gm/dl (11.8-15.2); Lymphocytes # (Auto) 3.3 K/mm3 (1.2-5.4); Lymphocytes % (Auto) 51.9 % (13.4-35.0); Mean Corpuscular HGB Conc 34 % (32-34); Mean Corpuscular Volume 101 fl (84-94); Monocytes # (Auto) 0.5 K/mm3 (0.0-0.8); Monocytes % (Auto) 8.4 % (0.0-7.3); Platelet Count 273 K/mm3 (140-440); Red Blood Count 4.68 M/mm3 (3.65-5.03); Red Cell Distribution Width 13.5 % (13.2-15.2)
[2020-06-20 13:01] LABS: INR 1.04 (0.87-1.13)
[2020-06-20 13:02] LABS: Partial Thromboplastin Time 37.8 Sec. (24.2-36.6)
[2020-06-20 13:13] LABS: Alanine Aminotransferase 13 units/L (7-56); Albumin 4.5 g/dL (3.9-5); BUN/Creatinine Ratio 13; Blood Urea Nitrogen 10 mg/dL (9-20); Calcium 10.1 mg/dL (8.4-10.2); Hemolysis Index 17
[2020-06-20] MEDS ORDERED: ALUM-MAG HYDROXIDE-SIMETHICONE 200-200-20MG/5ML ORAL LIQD 30 ML PO ONE (15:42)
[2020-06-20] MEDS ORDERED: ACETAMINOPHEN 325 MG TAB PO ONE (15:42)
[2020-06-20 17:01] VITALS: BP 111/80
== END 2020-06-20 17:05 | disposition home or self-care (01) ==
LOC: ED 11:29
DX: K21.9 Gastro-esophageal reflux disease without esophagitis (principal); R07.89 Other chest pain; M19.91 Primary osteoarthritis, unspecified site; J44.9 Chronic obstructive pulmonary disease, unspecified; Z86.73 Personal history of transient ischemic attack (TIA), and cerebral infarction without residual deficits; Z98.890 Other specified postprocedural states; Z79.1 Long term (current) use of non-steroidal anti-inflammatories (NSAID); Z79.2 Long term (current) use of antibiotics; Z79.899 Other long term (current) drug therapy
CPT/HCPCS: 36415; 71046; 80053; 83690; 84484; 85025; 85379; 85610; 85730; 93005; 96374

== ENCOUNTER 2022-01-17 17:09 | Emergency (ER) | payer MEDICAID ==
[2022-01-17] MEDS ORDERED: KETOROLAC 30 MG/1 ML INJ IM ONE (21:01)
[2022-01-17] MEDS ORDERED: methylPREDNISolone Sod Succinate 125 MG/2 ML INJ IM ONE (21:02)
[2022-01-17] MEDS ORDERED: oxyCODONE /ACETAMINOPHEN 5-325MG TAB PO ONE (21:02)
[2022-01-17] MEDS ORDERED: ONDANSETRON 4 MG ODT TAB PO ONE (21:03)
--- NOTE | 2022-01-17 21:25 | Emergency Department Report ---
ED General Adult HPI - General Chief complaint: Pain General Stated complaint: RT ARM PAIN Source: patient Mode of arrival: Ambulatory Limitations: No Limitations - History of Present Illness Initial comments: Patient is a 61-year-old male with a history of CVA, chronic osteoarthritis, chronic arthropathy, asthma and COPD who presents to the ED with complaint of acute exacerbation of his chronic cardiac neuropathy characterized by right elbow and wrist pain with swelling for the last 1 week, worse in the last 3 days. Patient states that he was initially treated by his primary care physician who prescribed for him colchicine and Zanaflex for pain 4 days ago. Patient states that in the last 2 days the pain has worsened such that he is unable to perform any active range of motion with the right arm. Patient denies dizziness, syncope, chest pain, shortness of breath, fever, chills, traumatic injury, heavy lifting, fall, numbness and tingling or weakness of upper extr emities bilaterally. MD Complaint: right elbow and wrist pain; chronic gouty arthropathy -: Gradual, week(s) (1) Location: right, upper extremity (right elbow and wrist pain) Radiation: non-radiation Severity scale (0 -10): 8 Quality: aching, sharp Consistency: constant Improves with: none Worsens with: movement Associated Symptoms: denies other symptoms. denies: chest pain, cough, diaphoresis, fever/chills, headaches, loss of appetite, malaise, nausea/vomiting, rash, seizure, shortness of breath, syncope, weakness Treatments Prior to Arrival: NSAID - Related Data Home Medications Medication Instructions Recorded Confirmed Last Taken Gabapentin 400 mg PO TID 11/16/14 02/16/18 1 Day Ago ~11/21/15 Ibuprofen [Motrin 800 MG tab] 800 mg PO Q8H PRN 11/16/14 02/16/18 07/26/16 Fenofibrate [Tricor] 145 mg PO QDAY 07/27/16 02/16/18 02/11/18 Simvastatin (Nf) [Zocor TAB] 20 mg PO QHS 07/27/16 02/16/18 02/15/18 allopurinoL [Zyloprim] 100 mg PO QDAY 07/27/16 02/16/18 02/15/18 Amitriptyline 25 mg PO DAILY 02/16/18 02/16/18 Unknown Fish Oil 1 tab PO DAILY 02/16/18 02/16/18 02/11/18 Lyrica 250 mg PO DAILY 02/16/18 02/16/18 02/15/18 Vitamin B-12 1 tab PO DAILY 02/16/18 02/16/18 02/11/18 Vitamin E Cap 1 tab PO DAILY 02/16/18 02/16/18 02/11/18 Previous Rx's Medication Instructions Recorded Last Taken Type Albuterol Sulfate [Ventolin HFA] 2 puff IH Q4H PRN #1 hfa.aer.ad 09/22/15 02/13/18 Rx Colchicine 0.6 mg PO QDAY #12 capsule 07/27/16 02/11/18 Rx HYDROcodone/APAP 5-325 [[place] 1 each PO Q6HR PRN #20 tablet 07/18/17 Unknown Rx 5-325 mg TAB] Cyclobenzaprine [Flexeril] 10 mg PO TID PRN #30 tablet 06/24/18 Unknown Rx Menthol/Camphor [[place] 1 applicatio TP QID PRN #1 tube 06/24/18 Unknown Rx Ointment] Naproxen 500 mg PO BID PRN #30 tablet 06/24/18 Unknown Rx Acetaminophen [Acetaminophen TAB] 500 mg PO Q6HR PRN #12 tablet 08/24/19 Unknown Rx Azithromycin [Zithromax Z-ISSAC] 250 mg PO DAILY 5 Days #1 pkg 08/24/19 Unknown Rx Pantoprazole [Protonix] 40 mg PO QDAY #30 tablet 06/20/20 Unknown Rx traMADoL [Ultram] 50 mg PO Q6HR PRN #12 tablet 06/20/20 Unknown Rx Indomethacin 50 mg PO Q8H PRN #60 cap 01/17/22 Unknown Rx predniSONE [Deltasone] 60 mg PO QDAY #15 tab 01/17/22 Unknown Rx Allergies Allergy/AdvReac Type Severity Reaction Status Date / Time No Known Allergies Allergy Verified 06/24/18 19:50 ED Review of Systems ROS: Stated complaint: RT ARM PAIN Other details as noted in HPI Constitutional: denies: chills, fever Eyes: denies: eye pain, eye discharge, vision change ENT: denies: ear pain, throat pain Respiratory: denies: cough, shortness of breath, wheezing Cardiovascular: denies: chest pain, palpitations Endocrine: no symptoms reported Gastrointestinal: denies: abdominal pain, nausea, diarrhea Genitourinary: denies: urgency, dysuria Musculoskeletal: joint swelling (right elbow and wrist), arthralgia (right elbow and wrist pain), myalgia. denies: back pain Skin: denies: rash, lesions Neurological: denies: headache, weakness, paresthesias Psychiatric: denies: anxiety, depression Hematological/Lymphatic: denies: easy bleeding, easy bruising ED Past Medical Hx - Past Medical History Hx CVA: Yes Hx Congestive Heart Failure: No Hx Diabetes: No Hx Liver Disease: Yes (HEPATITIS B) Hx Arthritis: Yes (Gout) Hx Asthma: Yes Hx COPD: Yes Additional medical history: hemorrhoids. pancreatitis,. gout. Hyperlipidemia - Surgical History Additional Surgical History: hemorrhoid surgery. PROSTATE SURGERY - Social History Smoking Status: Never Smoker - Medications Home Medications: Home Medications Medication Instructions Recorded Confirmed Last Taken Type Gabapentin 400 mg PO TID 11/16/14 02/16/18 1 Day Ago History ~11/21/15 Ibuprofen [Motrin 800 MG tab] 800 mg PO Q8H PRN 11/16/14 02/16/18 07/26/16 History Albuterol Sulfate [Ventolin HFA] 2 puff IH Q4H PRN #1 hfa.aer.ad 09/22/15 02/16/18 02/13/18 Rx Colchicine 0.6 mg PO QDAY #12 capsule 07/27/16 02/16/18 02/11/18 Rx Fenofibrate [Tricor] 145 mg PO QDAY 07/27/16 02/16/18 02/11/18 History Simvastatin (Nf) [Zocor TAB] 20 mg PO QHS 07/27/16 02/16/18 02/15/18 History allopurinoL [Zyloprim] 100 mg PO QDAY 07/27/16 02/16/18 02/15/18 History HYDROcodone/APAP 5-325 [[place] 1 each PO Q6HR PRN #20 tablet 07/18/17 02/16/18 Unknown Rx 5-325 mg TAB] Amitriptyline 25 mg PO DAILY 02/16/18 02/16/18 Unknown History Fish Oil 1 tab PO DAILY 02/16/18 02/16/18 02/11/18 History Lyrica 250 mg PO DAILY 02/16/18 02/16/18 02/15/18 History Vitamin B-12 1 tab PO DAILY 02/16/18 02/16/18 02/11/18 History Vitamin E Cap 1 tab PO DAILY 02/16/18 02/16/18 02/11/18 History Cyclobenzaprine [Flexeril] 10 mg PO TID PRN #30 tablet 06/24/18 Unknown Rx Menthol/Camphor [[place] 1 applicatio TP QID PRN #1 tube 06/24/18 Unknown Rx Ointment] Naproxen 500 mg PO BID PRN #30 tablet 06/24/18 Unknown Rx Acetaminophen [Acetaminophen TAB] 500 mg PO Q6HR PRN #12 tablet 08/24/19 Unknown Rx Azithromycin [Zithromax Z-ISSAC] 250 mg PO DAILY 5 Days #1 pkg 08/24/19 Unknown Rx Pantoprazole [Protonix] 40 mg PO QDAY #30 tablet 06/20/20 Unknown Rx traMADoL [Ultram] 50 mg PO Q6HR PRN #12 tablet 06/20/20 Unknown Rx Indomethacin 50 mg PO Q8H PRN #60 cap 01/17/22 Unknown Rx predniSONE [Deltasone] 60 mg PO QDAY #15 tab 01/17/22 Unknown Rx ED Physical Exam - General Limitations: No Limitations General appearance: alert, in no apparent distress - Head Head exam: Present: atraumatic, normocephalic, normal inspection - Eye Eye exam: Present: normal appearance, PERRL, EOMI Pupils: Present: normal accommodation - ENT ENT exam: Present: normal exam, normal orophraynx, mucous membranes moist, TM's normal bilaterally, normal external ear exam - Neck Neck exam: Present: normal inspection, full ROM. Absent: tenderness - Respiratory Respiratory exam: Present: normal lung sounds bilaterally. Absent: respiratory distress, wheezes, rales, rhonchi, chest wall tenderness, accessory muscle use, decreased breath sounds - Cardiovascular Cardiovascular Exam: Present: regular rate, normal rhythm, normal heart sounds. Absent: systolic murmur, diastolic murmur, rubs, gallop - GI/Abdominal GI/Abdominal exam: Present: soft, normal bowel sounds. Absent: tenderness, guarding, rebound, hyperactive bowel sounds, hypoactive bowel sounds, mass - Extremities Exam Extremities exam: Present: normal inspection, full ROM (Limited range of motion of right wrist and elbow due to pain), tenderness (Palpable right elbow and right wrist tenderness with mild swelling and limited range of motion due to pain), normal capillary refill, joint swelling (right elbow and wrist). Absent: pedal edema, calf tenderness - Back Exam Back exam: Present: normal inspection, full ROM. Absent: tenderness, CVA tenderness (R), CVA tenderness (L), muscle spasm, paraspinal tenderness, vertebral tenderness - Neurological Exam Neurological exam: Present: alert, oriented X3, CN II-XII intact, normal gait, reflexes normal - Psychiatric Psychiatric exam: Present: normal affect, normal mood - Skin Skin exam: Present: warm, dry, intact, normal color. Absent: rash ED Course Vital Signs 01/17/22 17:35 Temperature 98.3 F Pulse Rate 79 Respiratory 18 Rate Blood Pressure 123/85 O2 Sat by Pulse 98 Oximetry ED Medical Decision Making - Medical Decision Making This is a 61-year-old male with a history of CVA, chronic osteoarthritis, chronic arthropathy, asthma and COPD who presents to the ED with complaint of acute exacerbation of his chronic cardiac neuropathy characterized by right elbow and wrist pain with swelling for the last 1 week, worse in the last 3 days. Patient states that he was initially treated by his primary care physician who prescribed for him colchicine and Zanaflex for pain 4 days ago. Patient states that in the last 2 days the pain has worsened such that he is unable to perform any active range of motion with the right arm. In the ED, patient is alert and oriented x3 and is not in any distress. Patient however appears to be in pain. Patient was treated for pain in the ED and discharged home on medications and advised to follow-up with his primary care physician in 7 to 10 days for reevaluation or return to the ED immediately if symptoms get worse. - Differential Diagnosis Gouty arthropathy; Osteoarthritis; Chronic pain Critical care attestation.: If time is entered above; I have spent that time in minutes in the direct care of this critically ill patient, excluding procedure time. ED Disposition Clinical Impression: Chronic gouty arthropathy, Chronic pain syndrome Disposition: HOME / SELF CARE / HOMELESS Is pt being admited?: No Does the pt Need Aspirin: No Condition: Stable Instructions: Low-Purine Eating Plan, Authorized Agent-Controlled Analgesia, Chronic Pain, Adult, Uric Acid Nephropathy Additional Instructions: Take medication with food, drink plenty of fluids, follow-up with your primary care physician in 7 to 10 days for reevaluation. Return to the ED immediately if symptoms get worse. Prescriptions: predniSONE [Deltasone] 60 mg PO QDAY #15 tab Indomethacin 50 mg PO Q8H PRN #60 cap PRN Reason: Gout pain Referrals: [facility] [Provider Group] - 7-10 days Forms: Work/School Release Form(ED) Time of Disposition: 21:25 Print Language: YEMENI
[2022-01-17 23:18] VITALS: BP 127/89
== END 2022-01-17 23:17 | disposition home or self-care (01) ==
LOC: ED 17:09
DX: M1A.9XX0 Chronic gout, unspecified, without tophus (tophi) (principal); G89.4 Chronic pain syndrome; J45.909 Unspecified asthma, uncomplicated
CPT/HCPCS: 96372; 99282; J1885; J2930; J3490; Q0162